=== PATIENT | male | born 1945 | race Caucasian/White ===

== ENCOUNTER → 2019-06-09 | Day surgery (SDC) | payer MEDICARE ==
[2019-06-05 15:57] LABS: BASOPHILS % 0.5 % (0.0-1.0); EOSINOPHILS # (AUTO) 0.1 (0.0-0.4); HEMATOCRIT 44.5 % (38.2-49.6); HEMOGLOBIN 14.3 g/dL (14.0-18.0); LYMPHOCYTES # (AUTO) 1.6 (1.0-3.2); LYMPHOCYTES % 26.7 % (18.0-39.1); MEAN CORPUSCULAR HEMOGLOBIN 29.5 pg (28-32); MEAN CORPUSCULAR HGB CONC 32.1 g/dL (31-35); MEAN CORPUSCULAR VOLUME 91.9 fL (81-99); MONOCYTES # (AUTO) 0.7 (0.2-0.8); MONOCYTES % 11.6 % (4.4-11.3); NEUTROPHILS # (AUTO) 3.7 (2.1-6.9); NEUTROPHILS % 59.9 % (38.7-80.0); PLATELET COUNT 222 x10e3/uL (140-360); RED BLOOD COUNT 4.84 x10e6/uL (4.3-5.7); RED CELL DISTRIBUTION WIDTH 13.6 % (11.7-14.4)
[2019-06-05 16:09] LABS: INR 0.95; PROTHROMBIN TIME 13.2 seconds (11.9-14.5)
[2019-06-05 16:10] LABS: PARTIAL THROMBOPLASTIN TIME 31.6 seconds (23.8-35.5)
[2019-06-05 16:20] LABS: ALANINE AMINOTRANSFERASE 233 IU/L (0-55); ALBUMIN 3.5 g/dL (3.5-5.0); ALKALINE PHOSPHATASE 1314 IU/L (40-150); ANION GAP 16.2 mmol/L (8-16); BLOOD UREA NITROGEN 15 mg/dL (7-26); BUN/CREATININE RATIO 13 (6-25); CARBON DIOXIDE 27 mmol/L (22-29); CHLORIDE 98 mmol/L (98-107); CREATININE, SERUM 1.16 mg/dL (0.72-1.25); EST GLOMERULAR FILTRATION RATE > 60 ML/MIN (60-); GLUCOSE 125 mg/dL (74-118); POTASSIUM 4.2 mmol/L (3.5-5.1); SODIUM 137 mmol/L (136-145)
[~2019-06-09] MED LIST: AMLODIPINE BESY10 MG PO; ATORVASTATIN CA20 MG PO; DEXAMETHASONE SOD PHOS INJ 4 MG/ML VIAL ONE; FENTANYL CITRATE/PF 100MCG/2 ML INJ ONE; FLOMAX0.4 MG PO; GLUCAGON FOR INJ 1 MG VIAL ONE; GLYCOPYRROLATE INJ 1MG/ 5 ML SYR ONE; INDOMETHACIN 50 MG SUPP.RECT RC ONE; IOPAMIDOL 610MG/1ML 300 MG/ML VIAL IV ONE; MIDAZOLAM HCL 2 MG/2 ML VIAL ONE; NEOSTIGMINE 5 MG/5ML SYR ONE; OMEPRAZOLE40 MG PO; ONDANSETRON HCL INJ 2MG/ML 2ML 2 MG/ML VIAL ONE; PLAVIX75 MG PO; PROPOFOL IV EMULSION 10 MG/ML 50 ML VIAL ONE; ROCURONIUM BROMIDE 10 MG/ML 5ML VIAL ONE; SEVOFLURANE INHAL SOLN 250 ML PEN BTL ONE
[2019-06-09 16:35] VITALS: BP 144/87
--- NOTE | 2019-06-09 17:06 | Operative Report ---
DATE OF PROCEDURE: 06/09/2019 SURGEON: Mauro Benitez MD PROCEDURE: ERCP. INDICATIONS FOR PROCEDURE: Abnormal liver enzymes, choledocholithiasis on MRCP. MEDICATIONS: The patient was done under general endotracheal anesthesia, please see anesthesiologist's note. PROCEDURE IN DETAIL: With the patient in the prone position and after induction of adequate general endotracheal anesthesia, the flexible fiberoptic Olympus side-viewing scope was then introduced into the esophagus and advanced all the way to the second portion of the duodenum. The ampulla was identified and the ampullary orifice was cannulated and inadvertently the pancreatic duct was opacified and despite multiple attempts, the common bile duct could not be cannulated. The scope was subsequently withdrawn and the patient tolerated the procedure well. IMPRESSION: 1. Pancreatic duct cannulated inadvertently and appears to be within normal limits. 2. Common bile duct could not be cannulated despite multiple attempts. The patient tolerated the procedure well. We will refer to Dr. Knox at [facility]. Mauro Benitez [place] [facility] [facility] [place][id number] cc: Zaki Pérez MD
--- NOTE | 2019-06-10 10:00 | Diagnostic Imaging Report ---
EXAMINATION: ERCP. INDICATION: Biliary obstruction. COMPARISON: None FINDINGS: Fluoroscopy time: 2 minutes 44 seconds. Estimated dose: 102.8mGy Fluoroscopic guidance was utilized for endoscopic retrograde cholangiopancreatography. Single saved image demonstrates endoscope in the small bowel without demonstration of access to the biliary system. IMPRESSION: Fluoroscopic guidance of ERCP as above. Signed by: Marisol Underwood MD on 06/10/2019 9:57 AM
== END | disposition home or self-care (01) ==
LOC: ENDO 11:57
PROVIDERS: ATTEND Internal Medicine Gastroenterology
DX: K80.50 Calculus of bile duct without cholangitis or cholecystitis without obstruction (principal); R94.5 Abnormal results of liver function studies; Z01.810 Encounter for preprocedural cardiovascular examination; Z01.812 Encounter for preprocedural laboratory examination; Z79.02 Long term (current) use of antithrombotics/antiplatelets
CPT/HCPCS: 36415; 43260; 74328; 80053; 85025; 85610; 85730; 93005; J1100; J1610; J2250; J2405; J2704; J3010; J3490; Q9967

== ENCOUNTER → 2024-07-22 | Outpatient (REF) | payer MEDICARE ==
[~2024-07-22] MED LIST changes: -DEXAMETHASONE SOD PHOS INJ 4 MG/ML VIAL ONE; -FENTANYL CITRATE/PF 100MCG/2 ML INJ ONE; -GLUCAGON FOR INJ 1 MG VIAL ONE; -GLYCOPYRROLATE INJ 1MG/ 5 ML SYR ONE; -INDOMETHACIN 50 MG SUPP.RECT RC ONE; -IOPAMIDOL 610MG/1ML 300 MG/ML VIAL IV ONE; -MIDAZOLAM HCL 2 MG/2 ML VIAL ONE; -NEOSTIGMINE 5 MG/5ML SYR ONE; -ONDANSETRON HCL INJ 2MG/ML 2ML 2 MG/ML VIAL ONE; -PROPOFOL IV EMULSION 10 MG/ML 50 ML VIAL ONE; -ROCURONIUM BROMIDE 10 MG/ML 5ML VIAL ONE; -SEVOFLURANE INHAL SOLN 250 ML PEN BTL ONE
== END ==
LOC: RAD 08:33
PROVIDERS: ATTEND Internal Medicine
DX: I50.32 Chronic diastolic (congestive) heart failure (principal); I11.0 Hypertensive heart disease with heart failure
CPT/HCPCS: 71046; 93306